=== PATIENT | female | born 1975 | race African-American/Black ===

== ENCOUNTER 2021-10-25 20:07 | Observation (INO) | payer MEDICARE, MEDICAID ==
[2021-10-25] MEDS ORDERED: methylPREDNISolone Sod Succ/PF 125 MG/2 ML VIAL ONE (20:22)
[2021-10-25] MEDS ORDERED: Albuterol Sulfate 2.5 mg/0.5 ml Neb ONE ×2 (20:27→22:35)
[2021-10-25] MEDS ORDERED: Ipratropium Bromide 2.5 ml Neb ONE ×3 (20:27→22:34)
[2021-10-25 20:53] LABS: #Eosinphils 0.1 10x3/uL (0.0-0.5); #Monocytes 0.4 10x3/uL (0.0-1.1); #Neutrophils 3.9 10x3/uL (1.5-8.4); %Basophils 0.4 % (0.0-2.0); %Eosinophils 1.5 % (0.0-6.0); %Lymphocytes 44.1 % (18.0-47.0); %Monocytes 4.6 % (0.0-10.0); Hemoglobin 11.7 g/dL (12.0-15.5); Mean Corpuscular HGB CONC 31.4 g/dL (32.0-36.0); Mean Corpuscular Hemoglobin 27.4 pg (27.0-33.0); Mean Corpuscular Volume 87.4 fl (81.6-98.3); Mean Platelet Volume 11.4 fl (7.4-10.4); Platelet Count 232 10x3/uL (150-450); RBC Distribution Width 14.4 % (11.5-14.5); Red Blood Cell (RBC) Count 4.27 10x6/uL (3.90-5.03)
[2021-10-25 21:08] LABS: ALT (SGPT) 32 U/L (8-55); AST (SGOT) 17 U/L (5-34); Albumin 4.2 g/dL (3.5-5.0); Alkaline Phosphatase 67 U/L (40-110); Anion Gap 13 mmol/L (10-20); BUN (Urea Nitrogen) 10 mg/dL (7.0-18.7); Bilirubin, Total 0.2 mg/dL (0.2-1.2); Calc. Creatinine Clearance 0 mL/min (70-130); Calcium 9.1 mg/dL (7.8-10.44); Carbon Dioxide 24 mmol/L (22-29); Chloride 108 mmol/L (98-107); Globulin 2.9 g/dL (2.4-3.5); Glucose 166 mg/dL (70-105); Potassium 3.6 mmol/L (3.5-5.1); Protein, Total 7.1 g/dL (6.0-8.3); Sodium 141 mmol/L (136-145)
[2021-10-25 22:26] LABS: Actual Bicarbonate (HCO3a) 23.5 mEq/L (22-28); Base Excess (BEa) -1.8 mEq/L (-2.0 to +3.0); CO2 Tension 42.1 mmHg (35.0-45.0); Calcium, Ionized (arterial) 1.21 mmol/L (1.12-1.30); Hemoglobin (Hb) 12.5 g/dL (12.0-16.0); O2 Tension (PaO2), arterial 105.1 mmHg (80.0-100.0); Potassium - ABG Lab 3.6 mmol/L (3.70-5.30); Puncture Site RRA; pH, Arterial 7.37 (7.35-7.45)
[2021-10-25 22:27] LABS: ALV-art Gradient 41.915 mmHg (0-20)
[2021-10-25] MEDS ORDERED: Lorazepam 2 MG/ML VIAL ONE (23:32)
[2021-10-26 00:23] LABS: SARS-CoV-2 NAA Rapid Test Not Detected (NotDetected)
[2021-10-26] MEDS ORDERED: Ondansetron PF 4 MG/2 ML Vial IVP PRN (01:46)
[2021-10-26] MEDS ORDERED: Ondansetron ODT 4 MG TAB PO PRN (01:46)
[2021-10-26] MEDS ORDERED: Senokot S 8.6-50 MG TAB PO PRN (01:46)
[2021-10-26] MEDS ORDERED: Acetaminophen 325 MG TAB PO PRN (01:46)
[2021-10-26 02:03] LABS: Actual Bicarbonate (HCO3a) 20.9 mEq/L (22-28); CO2 Tension 41.7 mmHg (35.0-45.0); Calcium, Ionized (arterial) 1.21 mmol/L (1.12-1.30); Carboxyhemoglobin (COHb) 0.3 gm% (0.0-3.0); Critical Notified Whom: Patient RN; Hemoglobin (Hb) 12.8 g/dL (12.0-16.0); O2 Tension (PaO2), arterial 98.5 mmHg (80.0-100.0); Potassium - ABG Lab 3.8 mmol/L (3.70-5.30); Puncture Site RRA; pH, Arterial 7.32 (7.35-7.45)
[2021-10-26 02:06] LABS: ALV-art Gradient 49.015 mmHg (0-20)
[2021-10-26] MEDS ORDERED: Lactated Ringer's 1,000 ML IV SCH (02:15)
[2021-10-26] MEDS ORDERED: 1/2 NS w/KCL 20 mEq 1,000 ML IV SCH (02:15)
[2021-10-26 04:43] LABS: Anion Gap 16 mmol/L (10-20); BUN (Urea Nitrogen) 11 mg/dL (7.0-18.7); Calc. Creatinine Clearance 164 mL/min (70-130); Calcium 9.1 mg/dL (7.8-10.44); Carbon Dioxide 19 mmol/L (22-29); Chloride 107 mmol/L (98-107); Glucose 257 mg/dL (70-105); Magnesium 1.9 mg/dL (1.6-2.6); Potassium 4.3 mmol/L (3.5-5.1); Sodium 138 mmol/L (136-145)
[2021-10-26 04:47] LABS: #Monocytes 0.1 10x3/uL (0.0-1.1); #Neutrophils 5.7 10x3/uL (1.5-8.4); %Basophils 0.3 % (0.0-2.0); %Eosinophils 0.1 % (0.0-6.0); %Lymphocytes 13.4 % (18.0-47.0); %Monocytes 1.5 % (0.0-10.0); %Neutrophils 82.8 % (40.0-75.0); Hemoglobin 11.3 g/dL (12.0-15.5); Mean Corpuscular Hemoglobin 27.2 pg (27.0-33.0); Mean Corpuscular Volume 87.5 fl (81.6-98.3); Mean Platelet Volume 11.5 fl (7.4-10.4); Platelet Count 220 10x3/uL (150-450); RBC Distribution Width 14.6 % (11.5-14.5); Red Blood Cell (RBC) Count 4.16 10x6/uL (3.90-5.03); White Blood Cell (WBC) Count 6.9 10x3/uL (3.5-10.5)
[2021-10-26 05:42] LABS: Amphetamine Not Detected (NotDetected); Barbiturates Screen Not Detected (NotDetected); Benzodiazepine Screen Detected (NotDetected); Cocaine Metabolite Screen Detected (NotDetected); Methadone Not Detected (NotDetected); Methamphetamine Not Detected (NotDetected); Opiate Screen Not Detected (NotDetected); Oxycodone Screen Not Detected (NotDetected); Phencyclidine (PCP) Not Detected (NotDetected); THC/Cannabinoid Screen Not Detected (NotDetected); Tricyclic Screen Not Detected (NotDetected)
[2021-10-26] MEDS ORDERED: Arformoterol 15 MCG/2 ML NEB NEB SCH (06:30)
[2021-10-26] MEDS ORDERED: Budesonide 0.5 MG/2 ML NEB NEB SCH (06:30)
[2021-10-26 07:36] VITALS: BMI 46.2
[2021-10-26 08:43] VITALS: BP 143/77; TEMP 98.4
[2021-10-26] MEDS ORDERED: methylPREDNISolone Sod Succ 40 MG VIAL IVP SCH (09:00)
[2021-10-26] MEDS ORDERED: Enoxaparin Sodium 40 MG/0.4 ML SYRINGE SC SCH (09:00)
[2021-10-26 11:16] LABS: Hemoglobin A1c 6.6 % (4.0-6.0)
== END 2021-10-26 11:40 | disposition home or self-care (01) ==
LOC: CSHERS 20:07 → CSHTELE 20:08
PROVIDERS: ADMIT Family Medicine; ATTEND Internal Medicine
DX: R06.03 Acute respiratory distress (principal); J44.9 Chronic obstructive pulmonary disease, unspecified; G47.33 Obstructive sleep apnea (adult) (pediatric); E66.01 Morbid (severe) obesity due to excess calories; R73.9 Hyperglycemia, unspecified; Z90.710 Acquired absence of both cervix and uterus; F10.10 Alcohol abuse, uncomplicated; Z20.822 Contact with and (suspected) exposure to COVID-19
CPT/HCPCS: 36600 ×2; 71045; 80048; 80053; 80306; 82805 ×2; 83036; 83735; 83880; 84484; 85025 ×2; 93005; 93306; 94640 ×2; 94644; 94660; 94760; 96372; 96374; 96375 ×2; 99285; G0378; U0002; 93010; J1650; J2060; J2920; J2930; J3480; J7120; J7611; J7620; J7626

== ENCOUNTER 2021-12-16 09:18 | Emergency (ER) | payer MEDICARE, MEDICAID ==
[2021-12-16] MEDS ORDERED: Acetaminophen 500 MG TAB ONE (09:35)
[2021-12-16] MEDS ORDERED: Lidocaine Viscous Sol 2% 15 ml UD Cup ONE (09:35)
== END 2021-12-16 10:12 | disposition home or self-care (01) ==
LOC: CSHERS 09:18
DX: M72.2 Plantar fascial fibromatosis (principal); J44.9 Chronic obstructive pulmonary disease, unspecified

== ENCOUNTER 2022-01-12 22:30 | Inpatient (IN) | payer MEDICARE, MEDICAID ==
[2022-01-12 23:00] LABS: Amphetamine Not Detected (NotDetected); Barbiturates Screen Not Detected (NotDetected); Benzodiazepine Screen Not Detected (NotDetected); Cocaine Metabolite Screen Detected (NotDetected); Methadone Not Detected (NotDetected); Methamphetamine Not Detected (NotDetected); Opiate Screen Not Detected (NotDetected); Oxycodone Screen Not Detected (NotDetected); Phencyclidine (PCP) Not Detected (NotDetected); THC/Cannabinoid Screen Not Detected (NotDetected); Tricyclic Screen Not Detected (NotDetected)
[2022-01-12] MEDS ORDERED: Lorazepam 2 MG/ML VIAL ONE (23:07)
[2022-01-13 00:16] LABS: ALV-art Gradient 25.365 mmHg (0-20); Actual Bicarbonate (HCO3a) 22.5 mEq/L (22-28); Base Excess (BEa) -3.9 mEq/L (-2.0 to +3.0); CO2 Tension 46.3 mmHg (35.0-45.0); Calcium, Ionized (arterial) 1.24 mmol/L (1.12-1.30); Carboxyhemoglobin (COHb) 0.5 gm% (0.0-3.0); Hemoglobin (Hb) 13.5 g/dL (12.0-16.0); O2 Tension (PaO2), arterial 116.4 mmHg (80.0-100.0); Potassium - ABG Lab 3.6 mmol/L (3.70-5.30); Puncture Site RRA; pH, Arterial 7.31 (7.35-7.45)
[2022-01-13 00:31] LABS: #Basophils 0.1 10x3/uL (0.0-0.2); #Eosinphils 0.3 10x3/uL (0.0-0.5); #Monocytes 0.6 10x3/uL (0.0-1.1); #Neutrophils 3.6 10x3/uL (1.5-8.4); %Basophils 0.6 % (0.0-2.0); %Eosinophils 3.2 % (0.0-6.0); %Lymphocytes 49.4 % (18.0-47.0); %Monocytes 6.4 % (0.0-10.0); %Neutrophils 40.1 % (40.0-75.0); Hemoglobin 12.4 g/dL (12.0-15.5); Mean Corpuscular HGB CONC 31.2 g/dL (32.0-36.0); Mean Corpuscular Hemoglobin 26.7 pg (27.0-33.0); Mean Corpuscular Volume 85.6 fl (81.6-98.3); Mean Platelet Volume 11.5 fl (7.4-10.4); Platelet Count 254 10x3/uL (150-450); RBC Distribution Width 14.7 % (11.5-14.5); Red Blood Cell (RBC) Count 4.65 10x6/uL (3.90-5.03); White Blood Cell (WBC) Count 9.1 10x3/uL (3.5-10.5)
[2022-01-13 00:42] LABS: ALT (SGPT) 28 U/L (8-55); AST (SGOT) 20 U/L (5-34); Albumin 4.4 g/dL (3.5-5.0); Alkaline Phosphatase 73 U/L (40-110); Anion Gap 17 mmol/L (10-20); BUN (Urea Nitrogen) 10 mg/dL (7.0-18.7); Bilirubin, Total 0.3 mg/dL (0.2-1.2); Calc. Creatinine Clearance 0 mL/min (70-130); Calcium 9.4 mg/dL (7.8-10.44); Carbon Dioxide 20 mmol/L (22-29); Chloride 103 mmol/L (98-107); Globulin 3.6 g/dL (2.4-3.5); Glucose 157 mg/dL (70-105); Potassium 3.4 mmol/L (3.5-5.1); Sodium 137 mmol/L (136-145)
[2022-01-13 00:56] LABS: Magnesium 2.9 mg/dL (1.6-2.6)
[2022-01-13 01:04] LABS: SARS-CoV-2 NAA Rapid Test Not Detected (NotDetected)
[2022-01-13] MEDS ORDERED: Arformoterol 15 MCG/2 ML NEB NEB SCH (01:15)
[2022-01-13 01:24] VITALS: BMI 45.6
[2022-01-13] MEDS: NS 0.9% w/ 40 MEQ KCL 1,000 ML IV SCH ×2 (02:10→22:15)
[2022-01-13] MEDS: methylPREDNISolone Sod Succ 40 MG VIAL IVP SCH ×3 (02:10→16:07)
[2022-01-13] MEDS ORDERED: FLU VACC QS2021-22(6MOS UP)/PF 60 MCG/0.5 ML SYRINGE IM ONE (02:30)
[2022-01-13 06:36] LABS: #Monocytes 0.1 10x3/uL (0.0-1.1); #Neutrophils 4.2 10x3/uL (1.5-8.4); %Basophils 0.2 % (0.0-2.0); %Lymphocytes 18.7 % (18.0-47.0); %Monocytes 1.5 % (0.0-10.0); %Neutrophils 78.8 % (40.0-75.0); Hemoglobin 12.1 g/dL (12.0-15.5); Mean Corpuscular HGB CONC 30.9 g/dL (32.0-36.0); Mean Corpuscular Hemoglobin 26.9 pg (27.0-33.0); Mean Corpuscular Volume 86.9 fl (81.6-98.3); Mean Platelet Volume 11.2 fl (7.4-10.4); Platelet Count 247 10x3/uL (150-450); RBC Distribution Width 14.8 % (11.5-14.5); White Blood Cell (WBC) Count 5.3 10x3/uL (3.5-10.5)
[2022-01-13 06:46] LABS: Anion Gap 21 mmol/L (10-20); BUN (Urea Nitrogen) 13 mg/dL (7.0-18.7); Calc. Creatinine Clearance 151 mL/min (70-130); Carbon Dioxide 14 mmol/L (22-29); Chloride 108 mmol/L (98-107); Glucose 209 mg/dL (70-105); Potassium 4.7 mmol/L (3.5-5.1); Sodium 138 mmol/L (136-145)
[2022-01-13] MEDS: Arformoterol 15 MCG/2 ML NEB NEB SCH ×2 (07:15→19:02)
[2022-01-13] MEDS: Budesonide 0.5 MG/2 ML NEB NEB SCH ×2 (07:16→19:02)
[2022-01-13] MEDS: Pantoprazole 40 MG VIAL IVP SCH (08:14)
[2022-01-13] MEDS ORDERED: Enoxaparin Sodium 40 MG/0.4 ML SYRINGE SC SCH (09:00)
[2022-01-13] MEDS ORDERED: Labetalol HCl 100 MG/20 ML VIAL SLOW IVP SCH (20:30)
[2022-01-13] MEDS ORDERED: Acetaminophen 325 MG TAB PO SCH (20:30)
[2022-01-14] MEDS: methylPREDNISolone Sod Succ 40 MG VIAL IVP SCH ×4 (01:22→23:44)
[2022-01-14] MEDS ORDERED: Enoxaparin Sodium 40 MG/0.4 ML SYRINGE SC SCH (05:06)
[2022-01-14 06:35] LABS: Anion Gap 17 mmol/L (10-20); BUN (Urea Nitrogen) 15 mg/dL (7.0-18.7); Calc. Creatinine Clearance 157 mL/min (70-130); Calcium 9.3 mg/dL (7.8-10.44); Carbon Dioxide 20 mmol/L (22-29); Chloride 106 mmol/L (98-107); Glucose 232 mg/dL (70-105); Potassium 4.3 mmol/L (3.5-5.1); Sodium 139 mmol/L (136-145)
[2022-01-14] MEDS: Budesonide 0.5 MG/2 ML NEB NEB SCH ×2 (07:20→19:00)
[2022-01-14] MEDS: Arformoterol 15 MCG/2 ML NEB NEB SCH ×2 (07:28→19:00)
[2022-01-14] MEDS: Pantoprazole 40 MG VIAL IVP SCH (09:28)
[2022-01-14] MEDS ORDERED: Levofloxacin 500 mg/D5W 100 ml Premix Bag ONE (14:01)
[2022-01-14] MEDS: Guaifenesin DM 100-10/5 ML UDCUP PO PRN (23:44)
[2022-01-15] MEDS: Guaifenesin DM 100-10/5 ML UDCUP PO PRN ×3 (02:52→21:36)
[2022-01-15] MEDS: Benzonatate 100 MG CAP PO PRN ×3 (02:52→21:35)
[2022-01-15] MEDS ORDERED: Guaifenesin DM 100-10/5 ML UDCUP ONE (02:53)
[2022-01-15] MEDS: Arformoterol 15 MCG/2 ML NEB NEB SCH ×2 (06:45→19:00)
[2022-01-15] MEDS: Budesonide 0.5 MG/2 ML NEB NEB SCH ×2 (06:50→19:00)
[2022-01-15] MEDS: Pantoprazole 40 MG VIAL IVP SCH (09:13)
[2022-01-15] MEDS: Enoxaparin Sodium 40 MG/0.4 ML SYRINGE SC SCH (09:13)
[2022-01-15] MEDS: methylPREDNISolone Sod Succ 40 MG VIAL IVP SCH ×2 (09:13→17:12)
[2022-01-15] MEDS ORDERED: Melatonin 3 MG TAB PO SCH (22:30)
[2022-01-16] MEDS: methylPREDNISolone Sod Succ 40 MG VIAL IVP SCH ×4 (00:19→23:53)
[2022-01-16] MEDS: ALPRAZolam 0.25 MG TAB PO PRN (00:26)
[2022-01-16] MEDS: Arformoterol 15 MCG/2 ML NEB NEB SCH ×2 (07:03→19:03)
[2022-01-16] MEDS: Budesonide 0.5 MG/2 ML NEB NEB SCH ×2 (07:05→19:03)
[2022-01-16] MEDS: Guaifenesin DM 100-10/5 ML UDCUP PO PRN (10:06)
[2022-01-16] MEDS: Pantoprazole 40 MG VIAL IVP SCH (10:07)
[2022-01-16] MEDS: Benzonatate 100 MG CAP PO PRN (10:07)
[2022-01-16] MEDS: Enoxaparin Sodium 40 MG/0.4 ML SYRINGE SC SCH (10:07)
[2022-01-16] MEDS ORDERED: Dextrose 5% in Water 1,000 ML IV PRN (13:54)
[2022-01-16] MEDS ORDERED: Dextrose 50% Abboject 50 ML SYRINGE SLOW IVP PRN (13:54)
[2022-01-16] MEDS: HumaLOG 300 UNITS/3 ML VIAL SC PRN (21:54)
[2022-01-16] MEDS: Cepastat Lozenges 1 LOZ PO PRN (22:08)
[2022-01-17] MEDS: Labetalol HCl 100 MG/20 ML VIAL SLOW IVP PRN (05:45)
[2022-01-17] MEDS: HumaLOG 300 UNITS/3 ML VIAL SC PRN ×4 (06:37→21:07)
[2022-01-17] MEDS: Arformoterol 15 MCG/2 ML NEB NEB SCH ×2 (08:34→20:06)
[2022-01-17] MEDS: Budesonide 0.5 MG/2 ML NEB NEB SCH ×2 (08:35→20:06)
[2022-01-17] MEDS ORDERED: Ondansetron HCl/PF 8 MG, Admixture Fee 1 EACH in Sodium Chloride 0.9% 50 ML IVPB SCH (09:15)
[2022-01-17] MEDS: Amlodipine 10 MG TAB PO SCH (09:52)
[2022-01-17] MEDS: Cepastat Lozenges 1 LOZ PO PRN (09:52)
[2022-01-17] MEDS: Enoxaparin Sodium 40 MG/0.4 ML SYRINGE SC SCH (09:53)
[2022-01-17] MEDS: methylPREDNISolone Sod Succ 40 MG VIAL IVP SCH ×2 (09:54→17:37)
[2022-01-17] MEDS: Pantoprazole 40 MG VIAL IVP SCH (09:55)
[2022-01-17 10:05] LABS: Hemoglobin 12.1 g/dL (12.0-15.5); MDiff Complete? YES; Mean Corpuscular HGB CONC 31.8 g/dL (32.0-36.0); Mean Corpuscular Hemoglobin 27.1 pg (27.0-33.0); Mean Corpuscular Volume 85.2 fl (81.6-98.3); Mean Platelet Volume 10.6 fl (7.4-10.4); Platelet Count 265 10x3/uL (150-450); RBC Distribution Width 14.6 % (11.5-14.5); Red Blood Cell (RBC) Count 4.46 10x6/uL (3.90-5.03); White Blood Cell (WBC) Count 11.3 10x3/uL (3.5-10.5)
[2022-01-17 10:13] LABS: ALT (SGPT) 29 U/L (8-55); AST (SGOT) 16 U/L (5-34); Albumin 3.9 g/dL (3.5-5.0); Alkaline Phosphatase 63 U/L (40-110); Anion Gap 14 mmol/L (10-20); BUN (Urea Nitrogen) 14 mg/dL (7.0-18.7); Bilirubin, Total 0.3 mg/dL (0.2-1.2); Calc. Creatinine Clearance 153 mL/min (70-130); Carbon Dioxide 26 mmol/L (22-29); Chloride 100 mmol/L (98-107); Globulin 2.9 g/dL (2.4-3.5); Glucose 266 mg/dL (70-105); Potassium 4.2 mmol/L (3.5-5.1); Protein, Total 6.8 g/dL (6.0-8.3); Sodium 136 mmol/L (136-145)
[2022-01-17 10:36] LABS: Neutrophil 80 % (42-75)
[2022-01-17 10:37] LABS: Lymphocytes 16 % (21-51); Monocytes 4 % (0-10); Platelet Morphology Comment Appears Adequate
[2022-01-17 10:43] LABS: RBC Morphology Normal
[2022-01-17] MEDS: ALPRAZolam 0.25 MG TAB PO PRN (13:05)
[2022-01-17] MEDS: Guaifenesin DM 100-10/5 ML UDCUP PO PRN (21:00)
[2022-01-17] MEDS: Benzonatate 100 MG CAP PO PRN (21:00)
[2022-01-17] MEDS: Montelukast Sodium 10 mg Tablet PO SCH (21:00)
[2022-01-17] MEDS: Melatonin 3 MG TAB PO PRN (21:06)
[2022-01-18] MEDS: methylPREDNISolone Sod Succ 40 MG VIAL IVP SCH ×3 (00:07→17:34)
[2022-01-18] MEDS: HumaLOG 300 UNITS/3 ML VIAL SC PRN ×4 (06:31→21:16)
[2022-01-18] MEDS: Budesonide 0.5 MG/2 ML NEB NEB SCH ×2 (07:53→19:18)
[2022-01-18] MEDS: Arformoterol 15 MCG/2 ML NEB NEB SCH ×2 (07:54→19:18)
[2022-01-18] MEDS: Enoxaparin Sodium 40 MG/0.4 ML SYRINGE SC SCH (08:48)
[2022-01-18] MEDS: Pantoprazole 40 MG VIAL IVP SCH (08:48)
[2022-01-18] MEDS: Amlodipine 10 MG TAB PO SCH (08:48)
[2022-01-18] MEDS: Cepastat Lozenges 1 LOZ PO PRN (10:48)
[2022-01-18] MEDS: Benzonatate 100 MG CAP PO SCH ×2 (15:37→20:05)
[2022-01-18] MEDS ORDERED: diphenhydrAMINE 25 MG CAP PO SCH (17:00)
[2022-01-18] MEDS: Montelukast Sodium 10 mg Tablet PO SCH (20:05)
[2022-01-18] MEDS: ALPRAZolam 0.25 MG TAB PO PRN (21:16)
[2022-01-18] MEDS: Melatonin 3 MG TAB PO PRN (21:16)
[2022-01-19] MEDS: methylPREDNISolone Sod Succ 40 MG VIAL IVP SCH ×3 (00:43→16:11)
[2022-01-19] MEDS: HumaLOG 300 UNITS/3 ML VIAL SC PRN ×3 (06:09→20:44)
[2022-01-19] MEDS: Arformoterol 15 MCG/2 ML NEB NEB SCH ×2 (07:20→19:00)
[2022-01-19] MEDS: Budesonide 0.5 MG/2 ML NEB NEB SCH ×2 (07:25→19:00)
[2022-01-19] MEDS: Benzonatate 100 MG CAP PO SCH ×3 (08:35→20:43)
[2022-01-19] MEDS: Amlodipine 10 MG TAB PO SCH (08:35)
[2022-01-19] MEDS: Enoxaparin Sodium 40 MG/0.4 ML SYRINGE SC SCH (08:36)
[2022-01-19] MEDS: Montelukast Sodium 10 mg Tablet PO SCH (20:43)
[2022-01-20] MEDS: methylPREDNISolone Sod Succ 40 MG VIAL IVP SCH ×3 (00:25→15:52)
[2022-01-20] MEDS: HumaLOG 300 UNITS/3 ML VIAL SC PRN ×5 (02:40→21:00)
[2022-01-20 04:36] LABS: Hemoglobin 12.4 g/dL (12.0-15.5); Mean Corpuscular HGB CONC 32.3 g/dL (32.0-36.0); Mean Corpuscular Volume 83.7 fl (81.6-98.3); Mean Platelet Volume 10.7 fl (7.4-10.4); Platelet Count 272 10x3/uL (150-450); RBC Distribution Width 14.6 % (11.5-14.5); Red Blood Cell (RBC) Count 4.59 10x6/uL (3.90-5.03); White Blood Cell (WBC) Count 12.6 10x3/uL (3.5-10.5)
[2022-01-20 04:48] LABS: Anion Gap 15 mmol/L (10-20); BUN (Urea Nitrogen) 13 mg/dL (7.0-18.7); Calc. Creatinine Clearance 161 mL/min (70-130); Calcium 8.7 mg/dL (7.8-10.44); Carbon Dioxide 26 mmol/L (22-29); Chloride 96 mmol/L (98-107); Glucose 272 mg/dL (70-105); Potassium 4.3 mmol/L (3.5-5.1); Sodium 133 mmol/L (136-145)
[2022-01-20] MEDS ORDERED: diphenhydrAMINE 25 MG CAP PO PRN (04:51)
[2022-01-20] MEDS: Cepastat Lozenges 1 LOZ PO PRN (04:55)
[2022-01-20 05:59] LABS: MDiff Complete? YES
[2022-01-20 06:01] LABS: Band 2 % (5-11); Lymphocytes 11 % (21-51); Monocytes 4 % (0-10); Myelocyte 1 % (0-0); Neutrophil 82 % (42-75)
[2022-01-20 06:02] LABS: Platelet Morphology Comment Appears Adequate; RBC Morphology Normal
[2022-01-20] MEDS: Arformoterol 15 MCG/2 ML NEB NEB SCH ×2 (07:30→18:20)
[2022-01-20] MEDS: Enoxaparin Sodium 40 MG/0.4 ML SYRINGE SC SCH (08:15)
[2022-01-20] MEDS: Amlodipine 10 MG TAB PO SCH (08:15)
[2022-01-20] MEDS: Benzonatate 100 MG CAP PO SCH ×3 (08:16→20:53)
[2022-01-20] MEDS: Budesonide 0.5 MG/2 ML NEB NEB SCH ×2 (08:39→18:20)
[2022-01-20] MEDS: Acetaminophen 325 MG TAB PO PRN (11:40)
[2022-01-20] MEDS: Montelukast Sodium 10 mg Tablet PO SCH (20:53)
[2022-01-21] MEDS: methylPREDNISolone Sod Succ 40 MG VIAL IVP SCH ×3 (01:36→20:36)
[2022-01-21] MEDS: HumaLOG 300 UNITS/3 ML VIAL SC PRN ×4 (01:37→20:46)
[2022-01-21 05:13] LABS: Anion Gap 15 mmol/L (10-20); BUN (Urea Nitrogen) 18 mg/dL (7.0-18.7); Calc. Creatinine Clearance 149 mL/min (70-130); Calcium 8.6 mg/dL (7.8-10.44); Carbon Dioxide 25 mmol/L (22-29); Chloride 97 mmol/L (98-107); Glucose 333 mg/dL (70-105); Hemoglobin 12.3 g/dL (12.0-15.5); Mean Corpuscular HGB CONC 32.4 g/dL (32.0-36.0); Mean Corpuscular Hemoglobin 27.4 pg (27.0-33.0); Mean Corpuscular Volume 84.6 fl (81.6-98.3); Mean Platelet Volume 10.6 fl (7.4-10.4); Platelet Count 274 10x3/uL (150-450); Potassium 4.1 mmol/L (3.5-5.1); RBC Distribution Width 14.6 % (11.5-14.5); Red Blood Cell (RBC) Count 4.49 10x6/uL (3.90-5.03); Sodium 133 mmol/L (136-145); White Blood Cell (WBC) Count 14.8 10x3/uL (3.5-10.5)
[2022-01-21] MEDS: Arformoterol 15 MCG/2 ML NEB NEB SCH ×2 (05:26→19:24)
[2022-01-21] MEDS: Budesonide 0.5 MG/2 ML NEB NEB SCH ×2 (05:26→19:24)
[2022-01-21 06:50] LABS: MDiff Complete? YES
[2022-01-21 06:55] LABS: Band 14 % (5-11); Eosinophils 1 % (0-10); Lymphocytes 3 % (21-51); Monocytes 4 % (0-10); Neutrophil 76 % (42-75); Reactive Lymphocytes 2 % (0-10)
[2022-01-21] MEDS ORDERED: Dextrose 50% Abboject 50 ML SYRINGE SLOW IVP PRN (09:07)
[2022-01-21] MEDS ORDERED: Dextrose 5% in Water 1,000 ML IV PRN (09:07)
[2022-01-21] MEDS: Enoxaparin Sodium 40 MG/0.4 ML SYRINGE SC SCH (09:42)
[2022-01-21] MEDS: Amlodipine 10 MG TAB PO SCH (09:43)
[2022-01-21] MEDS: Benzonatate 100 MG CAP PO SCH ×3 (09:43→20:37)
[2022-01-21] MEDS ORDERED: metFORMIN 500 MG TAB PO SCH (12:00)
[2022-01-21] MEDS ORDERED: HumaLOG 300 UNITS/3 ML VIAL SC SCH (13:00)
[2022-01-21] MEDS: Nystatin 500,000 UNITS/5 ML UDCUP SSW SCH ×2 (15:14→20:36)
[2022-01-21 17:15] LABS: SARS-CoV-2 PCR by NAA Not Detected (NotDetected)
[2022-01-21] MEDS: metFORMIN 500 MG TAB PO SCH (17:22)
[2022-01-21] MEDS: Montelukast Sodium 10 mg Tablet PO SCH (20:37)
[2022-01-22] MEDS: Acetaminophen 325 MG TAB PO PRN ×2 (02:36→20:49)
[2022-01-22] MEDS: HumaLOG 300 UNITS/3 ML VIAL SC PRN ×4 (05:35→20:34)
[2022-01-22] MEDS: Arformoterol 15 MCG/2 ML NEB NEB SCH ×2 (07:30→19:03)
[2022-01-22] MEDS: Budesonide 0.5 MG/2 ML NEB NEB SCH ×2 (07:40→19:04)
[2022-01-22] MEDS: Benzonatate 100 MG CAP PO SCH ×3 (09:36→20:32)
[2022-01-22] MEDS: Enoxaparin Sodium 40 MG/0.4 ML SYRINGE SC SCH (09:36)
[2022-01-22] MEDS: Nystatin 500,000 UNITS/5 ML UDCUP SSW SCH ×2 (09:36→14:00)
[2022-01-22] MEDS: Amlodipine 10 MG TAB PO SCH (09:37)
[2022-01-22] MEDS: metFORMIN 500 MG TAB PO SCH ×2 (09:37→16:45)
[2022-01-22] MEDS: methylPREDNISolone Sod Succ 40 MG VIAL IVP SCH (09:37)
[2022-01-22] MEDS: Montelukast Sodium 10 mg Tablet PO SCH (20:32)
[2022-01-22] MEDS ORDERED: predniSONE 20 MG TAB PO SCH (21:00)
[2022-01-22] MEDS ORDERED: Ketorolac Tromethamine 30 MG/ML VIAL IVP SCH (21:45)
[2022-01-23] MEDS: Acetaminophen 325 MG TAB PO PRN (03:08)
[2022-01-23] MEDS: Arformoterol 15 MCG/2 ML NEB NEB SCH (07:00)
[2022-01-23] MEDS: Budesonide 0.5 MG/2 ML NEB NEB SCH (07:05)
[2022-01-23] MEDS: HumaLOG 300 UNITS/3 ML VIAL SC PRN ×2 (08:06→12:46)
[2022-01-23] MEDS ORDERED: Loperamide HCl 2 MG CAP PO PRN (08:07)
[2022-01-23] MEDS ORDERED: glipiZIDE 5 MG TAB PO SCH ×2 (08:15→16:30)
[2022-01-23] MEDS: Amlodipine 10 MG TAB PO SCH (08:28)
[2022-01-23] MEDS: Benzonatate 100 MG CAP PO SCH (08:28)
[2022-01-23] MEDS: Enoxaparin Sodium 40 MG/0.4 ML SYRINGE SC SCH (08:28)
[2022-01-23] MEDS: metFORMIN 500 MG TAB PO SCH (08:32)
[2022-01-23 11:55] VITALS: TEMP 97.7
[2022-01-23] MEDS: Labetalol HCl 100 MG/20 ML VIAL SLOW IVP PRN (12:45)
[2022-01-23] MEDS: ALPRAZolam 0.25 MG TAB PO PRN (12:45)
[2022-01-23 13:43] VITALS: BP 153/100
== END 2022-01-23 15:00 | disposition home or self-care (01) | DRG 189 ==
LOC: CSHERS 22:30 → CSHIMCU 01-13 01:10 → CSHTELE 01-13 23:30
PROVIDERS: ADMIT Family Medicine; ATTEND Internal Medicine
DX: J96.01 Acute respiratory failure with hypoxia (principal); G93.41 Metabolic encephalopathy; J44.1 Chronic obstructive pulmonary disease with (acute) exacerbation; J45.901 Unspecified asthma with (acute) exacerbation; E87.2 Acidosis; Z68.42 Body mass index [BMI] 45.0-49.9, adult; Z20.822 Contact with and (suspected) exposure to COVID-19; F41.9 Anxiety disorder, unspecified; G47.33 Obstructive sleep apnea (adult) (pediatric); R13.10 Dysphagia, unspecified; R12 Heartburn; F41.0 Panic disorder [episodic paroxysmal anxiety]; J96.02 Acute respiratory failure with hypercapnia; E66.01 Morbid (severe) obesity due to excess calories; F14.10 Cocaine abuse, uncomplicated; E87.6 Hypokalemia; R73.9 Hyperglycemia, unspecified; Z88.5 Allergy status to narcotic agent; Z88.8 Allergy status to other drugs, medicaments and biological substances; Z90.710 Acquired absence of both cervix and uterus
CPT/HCPCS: 36415; 36416; 36600; 71045; 71275; 80048; 80053; 80306; 82805; 83735; 83880; 85025; 87070; 87205; 90471; 90732; 93005; 93010; 94640; 94660; 94760; 96374; 96375; C9113; G0009; J1650; J1815; J1885; J1956; J2060; J2405; J2920; J3480; J7512; J7620; J7626; U0002; U0003; U0005